=== PATIENT | male | born 2000 | race Caucasian/White ===

== ENCOUNTER 2023-06-12 18:39 | Emergency (ER) | payer SELFPAY ==
[2023-06-12 18:47] VITALS: BP 169/82; PULSE 98; RESP 18; TEMP 36.7; O2SAT 99
--- NOTE | 2023-06-12 19:04 | ED.GENADULT ---
HPI - General Adult General Chief complaint: Upper Respiratory Infection Stated complaint: URI Time Seen by Provider: 06/12/23 18:41 History of Present Illness HPI narrative: 22yo man presents with two concerns : an increasing soreness and swelling in the back of the throat for the past 2 days and an increasing swelling and redness and pain in the left hand at the site of a tattoo he got 4 days ago. It was not done at a professional parlor but was done with professional tools and sterile procedure by a known acquaintance, per the pt. No fevers or chills. Related Data Allergies Allergy/AdvReac Type Severity Reaction Status Date / Time cephalexin [From Keflex] AdvReac Hives Verified 06/12/23 18:54 Review of Systems Review of Systems: All systems reviewed & are unremarkable except as noted in HPI and below Constitutional: Constitutional: Denies chills and Denies fever(s) ENT: Denies dysphagia Cardiovascular: Cardiovascular: Denies chest pain Respiratory: Respiratory: Denies dyspnea Gastrointestinal: Gastrointestinal: Denies abdominal pain Exam Const: General: healthy appearing and no acute distress Nutritional Appearance: well nourished HENMT: Head: normal to inspection Other: swollen tonsils with cobblestoning of posterior oropharyngeal wall Eyes: Conjunctivae: conjunctivae normal Resp: Effort & Inspection: normal respiratory effort Cardio: Rate: regular rate GI: Inspection: non-distended Skin: General skin exam: normal color, no jaundice and no pallor Other: tattoo to dorsum of left hand with expected mild erythema, but with increased warmth Extrem: Other: see skin exam Course Vital Signs Vital signs: Vital Signs Temperature 36.7 C 06/12/23 18:47 Pulse Rate 98 06/12/23 18:47 Respiratory Rate 18 06/12/23 18:47 Blood Pressure 169/82 H 06/12/23 18:47 Pulse Oximetry 99 06/12/23 18:47 Oxygen Delivery Room Air 06/12/23 18:47 Temperature 36.7 C 06/12/23 18:47 Pulse Rate 98 06/12/23 18:47 Respiratory Rate 18 06/12/23 18:47 Blood Pressure 169/82 H 06/12/23 18:47 Pulse Oximetry 99 06/12/23 18:47 Oxygen Delivery Room Air 06/12/23 18:47 Medical Decision Making MDM Narrative Medical decision making narrative: tonsillitis, pharyngitis, possible left hand cellulitis Vital Signs Vital Signs: Vital Signs Temperature 36.7 C 06/12/23 18:47 Pulse Rate 98 06/12/23 18:47 Respiratory Rate 18 06/12/23 18:47 Blood Pressure 169/82 H 06/12/23 18:47 Pulse Oximetry 99 06/12/23 18:47 Oxygen Delivery Room Air 06/12/23 18:47 Temperature 36.7 C 06/12/23 18:47 Pulse Rate 98 06/12/23 18:47 Respiratory Rate 18 06/12/23 18:47 Blood Pressure 169/82 H 06/12/23 18:47 Pulse Oximetry 99 06/12/23 18:47 Oxygen Delivery Room Air 06/12/23 18:47 Discharge Plan Discharge Clinical Impression: Tonsillopharyngitis Cellulitis Qualifiers: Site of cellulitis: extremity Site of cellulitis of extremity: upper extremity Laterality: left Qualified Code(s): L03.114 - Cellulitis of left upper limb Patient Disposition: Home, Self-Care Condition: Stable Instructions: Antibiotic Form, Cellulitis (ED), Pharyngitis (ED) Prescriptions: New doxycycline hyclate 100 mg capsule 100 mg PO BID 10 Days Qty: 20 0RF Follow-up/Referrals: Woody Green M.D. [Primary Care Provider] - Time of Disposition: 19:10
[2023-06-12] MEDS: DOXYCYCLINE HYCLATE 100 MG TABLET PO (19:13)
== END 2023-06-12 19:30 | disposition home or self-care (01) ==
LOC: CHSED 19:21
PROVIDERS: Emergency Provider Emergency Medicine; PCP Family Medicine
DX: L03.114 Cellulitis of left upper limb (principal); J03.90 Acute tonsillitis, unspecified
CPT/HCPCS: 99283; A9270

== ENCOUNTER 2024-10-14 02:05 | Emergency (ER) | payer OTHER, SELFPAY ==
[2024-10-14] VITALS (10 sets, daily range): BP systolic 142–156; BP diastolic 94–102; PULSE 87–106; RESP 18; TEMP 36.7–36.9; O2SAT 93–100
--- NOTE | ~2024-10-14 | XR_ITS ---
Portable chest x-ray Comparison: None Clinical History: Chest pain Findings: Lungs are clear, without focal consolidation or pleural effusion. Cardiomediastinal silho uette is unremarkable. Bones and soft tissues are unremarkable. Impression: Clear lungs. Reviewed, dictated and finalized at location M. Impression: Clear lungs.
--- NOTE | 2024-10-14 02:06 | ECG_ITS ---
Test Date: 2024-10-14 02:13:05 Measurements Intervals [place] Rate: 100 P: 40 WA: 126 QRS: 5 QRSD: 109 T: 64 QT: 316 QTc: 408 Interpretive Statements SINUS TACHYCARDIA MINIMAL VOLTAGE CRITERIA FOR LVH, CONSIDER NORMAL VARIANT [MEETS CRITERIA IN ONE OF: R(aVL), S(V1), R(V5), R(V5/V6)+S(V1)] INFERIOR MYOCARDIAL INFARCTION , PROBABLY OLD [40+ ms Q WAVE AND/OR ST/T ABNORMALITY IN II/aVF] No previous ECG available for comparison Electronically Signed On 10-14-2024 13:49:21 CDT by Aida Copeland M.D.
--- OUTSIDE RECORDS SUMMARY | 2024-10-14 02:07 | XMS_ITS | Clinical Summary ---
Author Organization [facility] al Address [address] [place] [address] Care Team Providers Care Yoga Instructor Name Role Phone Woody Green MD Primary Care Provider [phone]- [phone] Allergies Active Allergy Reactions Criticality Noted Date Comments Cephalexin Unknown,Hives Medium 09/29/2022 Medications oxyCODONE (ROXICODONE) 5 mg immediate release tabletIndicatio ns:Pain Take 1 tablet (5 mg total) by mouth every 4 (four) hours as needed for pain 20 tablet 3 Active Additional Information Patient not taking.Reported on 04/18/2023 docusate sodium (COLACE) 100 mg capsuleIndicati ons:constipatio n Take 1 capsule (100 mg total) by mouth 2 (two) times a day 60 capsule 1 3 Active Additional Information Patient not taking.Reported on 04/18/2023 acetaminophen 500 mg capsuleIndicati ons:Pain Take 2 capsules (1,000 mg total) by mouth every 6 (six) hours 90 tablet 1 3 Active Additional Information Patient not taking.Reported on 04/18/2023 Active Problems Problem Noted Date Diagnosed Date Cat bite 03/10/2023 Cat bite of finger, initial encounter 03/10/2023 Assessment & Plan (03/13/2023 12:11 PM CDT): Selwyn Mendez is a 22yr old make with no significant PMH was admitted to [facility] for management of cat bite to R 3rd digit. He underwent I&D on 03/10. OR findings are notable for synovitis and fluid within the PIP joint. Capsulotomy and synovium was debrided and was sent for cultures. Gram stain was negative for organisms and cultures are NGTD. ID was consulted for antibiotic recommendations. He was started on piperacillin-tazobactam which was switched to ampicillin-sulbactam on 03/12. Recommendations: - Continue IV ampicillin-sulbactam 3gms Q6hrs while inpatient - Need to monitor his cat for 10 days from day of bite to r/o rabies - When ready for discharge, discharge with oral amoxicillin-clavulanic acid 875/125mg PO BID for 4 weeks (03/10/23-04/07/23) - ID is formally signing off but will continue to folllow patient peripherally while in house. Please see sign off note from 03/13 for complete recommendations. Social History Tobacco Use Types Packs/Day Years Used Date Smoking Tobacco: Never Smokeless Tobacco: Never Tobacco Cessation:Counseling Given: Not Answered AUDIT-C Answer Date Recorded Q1: How often do you have a drink containing alc ohol? Never 03/10/2023 Average Number of Drinks Not on file 023 Frequency of Binge Drinking Not on file 02/19 Personal Safety Answer Date Recorded Have you ever been in or are you currently in a harmful physical or emotional relationship or is someone making you feel afraid or unsafe? Denies 03/10/2023 Sex and Gender Information Value Date Recorded Sex Assigned at Not on file Legal Sex Male 3:22 AM CDT Gender Identity Not on file Sexual Orientation Not on file Obstetrics History Last Filed Vital Signs Vital Sign Reading Time Taken Comments Blood Pressure 129/74 03/13/2023 9:23 AM CDT Pulse 84 03/13/2023 7:16 AM CDT Temperature 36.7 C (98 F) 03/13/2023 7:16 AM CDT Respiratory Rate 16 03/13/2023 7:16 AM CDT Oxygen Saturation 98% 03/13/2023 7:16 AM CDT Inhaled Oxygen Concentration - - Weight 111.1 kg (245 lb) 04/18/2023 3:25 PM SIGNALS ANALYST Height 175.3 cm (5' 9) 04/18/2023 3:25 PM SIGNALS ANALYST Body Mass Index 36.18 04/18/2023 3:25 PM SIGNALS ANALYST Plan of Treatment Health Maintenance Due Date Last Done Comments Depression Screening 2002 Hepatitis C Screening 2002 Meningococcal B Vaccine (1 of 2 - Standard) 2018 Regular Well Visit/Exam 18-64 2020 DTaP/Tdap/Td Vaccine (7 - Td or Tdap) 01/07/2025 01/07/2015, 02/27/2008, 01/29/2004, Additional history exists Influenza Vaccine (Season Ended) 2025 Pneumococcal vaccine <65 Aged Out 003, 2002, 2002 No longer eligible based on patient's age to complete this topic Hepatitis B Screening Completed 01/29/2004 , 2002, 2002 Varicella Vaccines Completed 01/07/2015, 01/29/2004 HPV Vaccines Completed 02/15/2021, 02/18, 01/07/2015 Insurance [facility] Advance Directives For more information, please contact: [phone] * Full Code (Latest Code Status on File) Date Activated Date Inactivated Comments 03/10/2023 2:19 PM 03/13/2023 9:22 PM Care Teams Yoga Instructor Relationship Specialty Start Date End Date Woody Green MD [address] [place] [address] PCP - General Family Practice 03/09/23
--- OUTSIDE RECORDS SUMMARY | 2024-10-14 02:07 | XMS_ITS | Referral Summary ---
Author Organization [facility] al Address [address] [place] [address] Care Team Providers Care Rural Carrier Name Role Phone Woody Green MD Primary Care Provider [phone]- [phone] Allergies Active Allergy Reactions Criticality Noted Date [...] with no significant PMH was admitted to [facility] for management of cat bite to [...] on file Sexual Orientation Not on file Last Filed Vital Signs Vital Sign Reading Time Taken Comments Blood Pressure 129/74 03/13/2023 9:23 AM CDT Pulse 84 03/13/2023 7:16 AM CDT Temperature 36.7 C (98 F) 03/13/2023 7:16 AM CDT Respiratory Rate 16 03/13/2023 7:16 AM CDT Oxygen Saturation 98% 03/13/2023 7:16 AM CDT Inhaled Oxygen Concentration - - Weight 111.1 kg (245 lb) 04/18/2023 3:25 PM OFFICE HELPER CLERICAL Height 175.3 cm (5' 9) 04/18/2023 3:25 PM OFFICE HELPER CLERICAL Body Mass Index 36.18 04/18/2023 3:25 PM OFFICE HELPER CLERICAL Plan of Treatment Not on file Insurance [facility] Advance Directives For more information, please contact: [phone] * Full Code (Latest Code Status on File) Date Activated Date Inactivated Comments 03/10/2023 2:19 PM 03/13/2023 9:22 PM Care Teams Rural Carrier Relationship Specialty Start Date End Date Woody Green MD [address] [place] [address] PCP - General Family Practice 03/09/23
--- OUTSIDE RECORDS SUMMARY | 2024-10-14 02:07 | XMS_ITS | Encounter Summary ---
Author Organization [facility] Address [address] [place] [address] Phone Care Team Providers Care Towel Sewer Name Role Phone Woody Green MD Primary Care Provider [phone]- [phone] Encounter Details Date Type Department Care Team (Latest Contact Info) Description 04/18/2023 Orders Only [facility] Scanning, Provider Social History Tobacco Use Types Packs/Day Years Used Date Smoking Tobacco: Never Smokeless Tobacco: Never AUDIT-C Answer Date Recorded Q1: How often [...] on file Sexual Orientation Not on file documented as of this encounter Plan of Treatment Not on file documented as of this encounter Procedures Procedure Name Priority Date/Time Associated Diagnosis Comments SCAN - RADIOLOGY/IMAGING 04/18/2023 documented in this encounter Results * SCAN - RADIOLOGY/IMAGING (04/18/2023) Anatomical Region Laterality Modality Other us Provider Scanning Final Result documented in this encounter Visit Diagnoses Not on filedocumented in this encounter Care Teams Towel Sewer Relationship Specialty Start Date End Date Woody Green MD [address] [place] [address] PCP - General Family Practice 03/09/23 documented as of this encounter
--- OUTSIDE RECORDS SUMMARY | 2024-10-14 02:07 | XMS_ITS | Continuity of Care Document ---
Author Organization [facility] Address [address] [place] [address] Rd [address] [place] [address] Phone Care Team Providers Care Visual Merchandising Specialist Name Role Phone Zenia OTR/L, CHT, [place] Unavailable Unava ilable Procedures Procedure Date HO metacarpal fracture orthosis prefab c ustomized with expertise Advance Directives Directive Yes / No Effective Date File Name No Information Encounters Encounter Description Practice Location Reason(s) For Visit Diagnoses Date Provider Providers Copied on Encounter [facility], [address] [place], [place] [address], [place], [place], [id number], tel:[phone] [facility] No Information Zenia Ferris. . Referring Provider: Rachel Fuentes, [address], [place], [address]. tel:[phone] Family History Family Member Type Diagnosis Age At Onset No Information Payers Payer name Insurance type Covered green party ID Authoriza tion(s) No Information Social History Type Description Quantity Date Captured Comments Sex Male Smoking Status No Information Chief Complaint And Reason For Visit No Information Reason For Referral Reason For Referral No Information History Of Present Illness Encounter Date Complaint History Of Prese nt Illness No Information Functional Status Date Functional Assessmen t No Information Instructions Date Instruction Additional Infor mation No Information Assessments Type Assessment Date No Information Patient Care Teams Name Effective Dates (start - stop) Status Members No Information
--- OUTSIDE RECORDS SUMMARY | 2024-10-14 02:27 | XMS_ITS | Continuity of Care Document ---
Author Organization [facility] Address [address] [place] [address] Rd [address] [place] [address] Phone Care Team Providers Care Lease Operator Name Role Phone Zenia OTR/L, CHT, [place] Unavailable Unava ilable Procedures Procedure Date HO metacarpal fracture orthosis prefab c ustomized with expertise Advance Directives Directive Yes / No Effective Date File Name No Information Encounters Encounter Description Practice Location Reason(s) For Visit Diagnoses Date Provider Providers Copied on Encounter [facility], [address] [place], [place] [address], [place], [place], [id number], tel:[phone] [facility] No Information Zenia Ferris. . Referring Provider: Rachel Fuentes, [address], [place], [address]. tel:[phone] Family History Family Member Type Diagnosis Age At Onset No Information Payers Payer name Insurance type Covered republican ID Authoriza tion(s) No Information Social History [...]
[2024-10-14 02:33] LABS: Hematocrit 46.8 % (40.0-54.0); Hemoglobin 15.7 g/dL (14.0-18.0); Mean Corpuscular HGB Conc 33.5 g/dL (32-36); Mean Corpuscular Hemoglobin 29.9 pg (27.0-31.0); Mean Corpuscular Volume 89.1 fL (78.0-102.0); Mean Platelet Volume 9.9 fl (8.7-11.0); Platelet Count Result 318 K/mm3 (150-420); Red Blood Count 5.25 M/mm3 (4.70-6.10); White Blood Count 9.3 K/mm3 (4.8-10.8)
[2024-10-14 02:45] LABS: Alanine Aminotransferase 36 U/L (6-50); Albumin Level 4.4 g/dL (3.5-5.1); Alkaline Phosphatase 86 U/L (38-126); Anion Gap 6 mmol/L (4-12); Aspartate Amino Transferase 35 U/L (17-59); Blood Urea Nitrogen 14 mg/dL (9-20); Calcium 8.7 mg/dL (8.4-10.2); Carbon Dioxide 27 mmol/L (22-30); Chloride 109 mmol/L (98-107); Estimated CRCL calculation 123 ml/min; Estimated Glomerular Filt Rate > 60; Glucose 117 mg/dL (65-110); Osmolality Calculated 295 mOsm/kg (285-295); Potassium 3.7 mmol/L (3.4-5.0); Sodium 142 mmol/L (137-145); Total Protein 7.8 g/dL (6.3-8.2)
[2024-10-14 02:57] LABS: Troponin I < 0.012 ng/mL (0.000-0.034)
--- NOTE | 2024-10-14 03:01 | PC.NURSE ---
Dr. Pate at bedside for patient update of results and plan of care. VSS.
--- NOTE | 2024-10-14 03:06 | ED_ITS ---
HPI - Chest Pain General Chief Complaint: Chest Pain Stated Complaint: chest pain Source: patient Mode of arrival: ambulatory Limitations: no limitations History of Present Illness HPI narrative: Patient is a 24-year-old male with significant past medical history that presents today with chest pain. Patient says that he had a very large cough then after the cough he was having a lot of pain in her hallway crossed chest. [place] like it was a chest tightness and pain that was reproducible. Pain is reproducible now. He is still currently having the chest pain he rates it about a 6 at 10. He does want to make sure was not his heart. Will most likely go so chondritis and with waist describing it. MD complaint: chest pain Onset (ago): hour(s) Prior episodes: No Onset: during rest and during exertion Pain location: substernal Pain radiation: none Severity: mild Quality: tightness and aching Relieving factors: nothing and nitroglycerin Exacerbating factors: nothing Context: recent illness and recent surgery Treatment prior to arrival: none Risk Factors Coronary artery disease risk factors: none Thoracic aortic dissection risk factors: none Related Data Allergies Allergy/AdvReac Type Severity Reaction Status Date / Time cephalexin (From Keflex) AdvReac Hives Verified 10/14/24 02:21 Review of Systems 2 Review of Systems: All systems reviewed & are unremarkable except as noted in HPI and below Constitutional: Constitutional: Reports as per HPI Eyes: Eyes: Reports no additional eye complaints ENT: Reports system reviewed and no additional complaints, except as documented Cardiovascular: Cardiovascular: Reports chest pain Respiratory: Respiratory: Reports no additional respiratory complaints Gastrointestinal: Gastrointestinal: Reports no additional gastrointestinal complaints Genitourinary: Genitourinary: Reports no additional male genitourinary complaints Musculoskeletal: Musculoskeletal: Reports no additional musculoskeletal complaints Integumentary/Breasts: Skin/Breast: Reports system reviewed and no additional complaints, except as docu Neurologic: Reports system reviewed and no additional complaints, except as documented Psychiatric: Psychiatric: Reports no additional psychiatric complaints Endocrine: Endocrine: Reports no additional endocrine complaints Hematologic/Lymphatic: Hematologic/Lymphatic: Reports no additional hematologic/lymphatic complaints Allergic/Immunologic: Allergic/Immunologic: Reports no additional allergic/immunologic complaints Exam 2 Const: General: cooperative Nutritional Appearance: average body habitus Orientation/consciousness: oriented to person HENMT: Head: normal to inspection Ears: hearing grossly normal bilaterally Face/Nose/Sinus: Normal external nose present Throat: posterior oropharynx normal Eyes: General: appearance normal, both eyes and all related structures Neck: Neck: normal visual inspection Chest: Chest palpation & inspection: normal inspection of the chest Resp: Effort & Inspection: normal respiratory effort Cardio: Jugular venous distension: no JVD GI: Inspection: normal to inspection Back/Spine/Pelvis: Back: no CVA tenderness Skin: General skin exam: normal color Neuro: General: oriented to person and oriented to place Extrem: General: normal to inspection Right upper extremity: normal to inspection Left upper extremity: normal to inspection Left lower extremity: normal to inspection Psych: Appearance: grossly normal Mental Status: mental status grossly normal Course Vital Signs Vital signs: Vital Signs Temperature 98.5 F 10/14/24 02:10 Pulse Rate 106 H 10/14/24 02:10 Respiratory Rate 18 10/14/24 02:10 Blood Pressure 142/102 H 10/14/24 02:10 Pulse Oximetry 100 10/14/24 02:10 Oxygen Delivery Room Air 10/14/24 02:10 Temperature 98.5 F 10/14/24 02:10 Pulse Rate 92 10/14/24 02:30 Respiratory Rate 18 10/14/24 02:15 Blood Pressure 156/97 H 10/14/24 02:30 Pulse Oximetry 98 10/14/24 02:30 Oxygen Delivery Room Air 10/14/24 02:30 MDM - Chest Pain MDM Narrative Medical decision making narrative: Patient most likely has costochondritis as he states that he had chest pain after he had a cough and then thing from tight and stress and also felt tight and tense. Will do full cardiac workup monitor troponin chest x-ray and full will work on was as well. Everything came back within normal limits troponins are negative chest her x- ray looks good as well. Differential Diagnosis Differential diagnosis: Likely costochondritis Medical Records Data Attestation: I reviewed the patient's medical records. Lab Data Attestation: I reviewed the patient's lab results. 10/14/24 02:30 10/14/24 02:30 Labs: Lab Results 10/14/24 Range/Units 02:30 WBC 9.3 (4.8-10.8) K/mm3 RBC 5.25 (4.70-6.10) M/mm3 Hgb 15.7 (14.0-18.0) g/dL Hct 46.8 (40.0-54.0) % MCV 89.1 (78.0-102.0) fL MCH 29.9 (27.0-31.0) pg MCHC 33.5 (32-36) g/dL RDW 13.0 (11.6-14.4) % Plt Count 318 (150-420) K/mm3 MPV 9.9 (8.7-11.0) fl Sodium 142 (137-145) mmol/L Potassium 3.7 (3.4-5.0) mmol/L Chloride 109 H (98-107) mmol/L Carbon Dioxide 27 (22-30) mmol/L Anion Gap 6 (4-12) mmol/L BUN 14 (9-20) mg/dL Creatinine 0.93 (0.7-1.3) mg/dL Estim Creat Clear Calc 123 ml/min Estimated GFR > 60 (59 - ) Glucose 117 H (65-110) mg/dL Calculated Osmolality 295 (285-295) mOsm/kg Calcium 8.7 (8.4-10.2) mg/dL Magnesium 2.0 (1.6-2.3) mg/dL Total Bilirubin 1.0 (0.2-1.3) mg/dL AST 35 (17-59) U/L ALT 36 (6-50) U/L Alkaline Phosphatase 86 (38-126) U/L Troponin I < 0.012 (0.000-0.034) ng/mL Total Protein 7.8 (6.3-8.2) g/dL Albumin 4.4 (3.5-5.1) g/dL Imaging Data Attestation: I personally reviewed and interpreted this imaging study as follows: Discharge Plan Discharge Clinical Impression: Costalchondritis, Chest pain Patient Disposition: Home Condition: Stable Instructions: Chest Pain (ED), Costochondritis (ED) Patient Language: Bengali Prescriptions: No Action doxycycline hyclate 100 mg capsule 100 mg PO BID 10 Days Qty: 20 0RF Follow-up/Referrals: Woody Green M.D. [Primary Care Provider] - Time of Disposition: 03:13
== END 2024-10-14 03:26 | disposition home or self-care (01) ==
PROVIDERS: Emergency Provider Family Medicine; PCP Family Medicine
DX: M94.0 Chondrocostal junction syndrome [Tietze] (principal)
CPT/HCPCS: 36415; 71045; 80053; 83735; 84484; 85027; 93005; 99284